=== PATIENT | female | born 1955 | race Caucasian/White ===

== ENCOUNTER → 2016-11-24 | Day surgery (SDC) | payer OTHER ==
[~2016-11-24] VITALS: Ht 152.4 cm; Wt 89.0 kg
[~2016-11-24] MED LIST: ACETAMINOPHEN 325 MG TAB PO PRN; ATROPINE SULFATE 0.1 MG/ML 5ML SYR IV PRN; CALC625T PO; CLTP PO; FENTANYL CITRATE INJ 50 MCG/1 ML 2 ML VIAL ONE; FERR325T5 PO; GINSENG PO; HEPARIN SOD (PORCINE) 1000 UNIT/ML 10 ML VIAL ONE; HYDR12.56 PO; HYDRTAB53 PO; LISI-787 PO; MIDAZOLAM HCL 1 MG/ML 2ML VIAL ONE; MULT-506 PO; NITROGLYCERIN/D5W 100MCG/ML 20ML SYR ONE; NiCARDipine HCL INJ 2.5 MG/ML 10 ML AMP ONE; ONDANSETRON INJ 2 MG/ML 2 ML VIAL IV PRN; PRLSR20 PO; SENNTAB23 PO; SIMV20TA2 PO; SODIUM CHLORIDE 0.9% 1000ML 250 ML IV PRN; TIMO0.5S35 OP; TRAZ1TAB16 PO; ULT/50 PO; VARE1PAK15 PO; [UNRECOGNIZED DRUG - CODE]
[2016-11-24 07:25] VITALS: BP 123/66; PULSE 72; TEMP 36.4; O2SAT 97; Ht 152.4 cm; Wt 89.0 kg
--- NOTE | 2016-11-24 08:08 | Procedure Note ---
Pre-Mod Sedation Assessment General Date of Moderate Sedation: Nov 24, 2016. Vital Signs: Vital Signs Past 12 Hours Date Time Temp Pulse Resp B/P (MAP) Pulse Ox O2 Delivery O2 Flow Rate FiO2 11/24/16 07:25 36.4 72 16 123/66 97 Room Air Review Cardiovascular: regular rate, rhythm, no edema, no gallop Abdomen: normal bowel sounds, non tender, soft Lungs: chest non-tender, lungs clear Pre-Sedation Airway Assessment Oral Cavity: Dentures Short Thick Neck: Yes Hx of Sleep Apnea: No Smoking Status: Current Every Day Smoker Mallampati Classification: Class III ASA Classification: Class III Procedure Planning Contraindications-for Mod Sed: None Yes Notes The planned sedation has been discussed with the patient and consent obtained. I have identified the patient, determined the appropriateness of sedation and have assessed the patient immediately prior to the procedure. All medicine(s) and interventions are by my order.
--- NOTE | 2016-11-24 09:48 | Procedure Note ---
Post-Mod Sedation Assessment General Date of Moderate Sedation Nov 24, 2016. Vital Signs: Vital Signs Past 12 Hours Date Time Temp Pulse Resp B/P (MAP) Pulse Ox O2 Delivery O2 Flow Rate FiO2 11/24/16 09:35 65 16 118/76 (90) 98 Room Air 11/24/16 07:25 36.4 72 16 123/66 97 Room Air Review - Discharge Criteria Vital Signs Stable: Yes Alert/Oriented/Conversant: Yes Returned to Baseline Mental St: Yes Nausea Absent/Minimal: Yes Pain/Discomfort/Absent/Minimal: Yes Normal/Baseline Respirations: Yes Active Bleeding?: No Pt Received D/C Instructions: No Prescriptions Given: None Specific Proced. D/C Criteria Distal Pulses Present (Cardiac: Yes Groin site assessed-Card Cath: Yes Voided Prior To Discharge: Yes Discharged Patients Adult Escort/Transportation: Yes
--- NOTE | 2016-11-24 09:48 | History & Physical Bridge Note ---
H&P Re-Evaluation Bridge Note: I have examined the patient, reviewed the History & Physical and in the interval since the performance of the History & Physical I have noted the following changes of clinical significance: No changes noted
--- NOTE | 2016-11-24 09:53 | Cardiac Catheterization ---
Procedure Note Procedure Date Nov 24, 2016. Pre-Procedure Diagnosis Valvular Disease AUC Score 7 Post-Procedure Diagnosis Normal Coronary Arteries Procedure(s) Performed Coronary Angiography Comprehensive Advisor Dr. Duckworth Dirt Supervisor(s) Yudi AYALA Estimated Blood Loss 5cc Medication(s) Fentanyl, Versed, Lidocaine 1% Summary of Findings Normal coronary arteries. Hemodynamics Rest Ao: 111/68/87 Final Ao: 110/69/86 LV: N/A Recommendations valve replacement Specimens None Radiation Exposure (mGy) 1113 Contrast (mls) 70 Anesthesia Moderate sedation. Sedation LAURIE Serra Procedural Complication(s) None Disposition Song Plugger Holding/Recovery ACC Data Cardiac Status Clinical evaluation leading to the procedure: Severe with progressive THOMAS. CAD Presntation: Stable angina Anginal Classification: CCS III Heart Failure: No Cardiogenic Shock w/in 24Hrs: No Cardiac Arrest w/in 24Hrs: No Imaging studies past 6 months: Yes Stress studies past 6 months: No Coronary Anatomy Dominant: Right Left Main (% Stenosis): Normal LAD (% Stenosis): Normal D1 (% Stenosis): Normal D2 (% Stenosis): Normal Circumflex (% Stenosis): Normal OM1 (% Stenosis): Normal L PL1 (% Stenosis): Normal L PL2 (% Stenosis): Normal RCA (% Stenosis): Normal R PDA (% Stenosis): Normal R PL1 (% Stenosis): Normal AM (% Stenosis): Normal Diagnostic Status: Elective Closure Device Percutaneous Entry Location: Femoral (unable to pass wire via radial access) Closure Device: Mynx Recommendations: valve replacement Intraprocedure Events Significant Dissection: No Perforation: No
--- NOTE | 2016-11-24 09:56 | Discharge Instructions ---
Discharge Instructions Procedure Procedure Date: Nov 24, 2016. Reason for Visit: Aortic Stenosis *Kopinski To Do*. Discharge Discharge Date: Nov 24, 2016. Discharge Diagnosis: status post cornary angiography. Normal coronary arteries. Last Recorded Wt (Kilograms): 89 Anesthesia Post Anesthesia Instructions: If you have had General Anesthesia or IV Sedation: * Do not drive today. * Resume driving when surgeon permits. * Do not make important decisions or sign legal documents today. * Call surgeon for: 1. Temperature elevations greater than 101 degrees F. 2. Uncontrollable pain. 3. Excessive bleeding. 4. Persistent nausea and vomiting. 5. Medication intolerance (nausea, vomiting or rash). * For nausea and vomiting use only clear liquids such as: tea, soda, bouillon until nausea subsides, then gradually increase diet as tolerated. * If you have any concerns or questions, call your surgeon's office. If physician is unavailable and it is an emergency, call 911 or go to the nearest emergency room. Instructions Activity Recommendations: limitations as noted below Return to School/Work: with the following limitations Recommended Home Diet: resume previous diet Allergies: Coded Allergies: Fluoxetine (Verified Allergy, Intermediate, /, 08/07/13) Venlafaxine (Verified Allergy, Intermediate, ?, 08/07/13) Uncoded Allergies: BUSPIRONE (Allergy, Intermediate, ?, 11/18/11) CORTISONE (Allergy, Intermediate, ?, 11/18/11) EYE DROPS (Allergy, Intermediate, ?, 11/18/11) SEAFOOD (Allergy, Intermediate, ?, 11/18/11) SUTURE (Allergy, Unknown, OTHER, 08/07/13) INFECTION Provider Instructions ACTIVITY RECOMMENDATIONS: It is common to feel weak and fatigue for a few days. * Do not drive or operate any motorized equipment for the next three days. * Limit stair usage (2 or 3 trips a day only) for the next three days. * Do not lift anything heavier than 10 pounds for the next three days. * Do not engage in vigorous exercise or any sports for the next five days. * You may shower the day after your procedure, but do not immerse the area for three days. Cleanse the site gently with soap and water. SPECIAL CARE INSTRUCTIONS: * You may replace the pressure dressing or band-aid the morning after the procedure. * After your procedure, it is normal to have a small bruise or small lump at the site. Examine your site daily for any change in the bruise or lump, redness, swelling, drainage or numbness. Notify your doctor if any change. BLEEDING: * If there is a small amount of bleeding at the site, lie down and apply firm pressure with a clean cloth for ten minutes. When the bleeding stops, lie quietly keeping the procedure limb straight for six hours. Notify your doctor as soon as possible. * If the bleeding does not stop after ten minutes or if there is a large amount of bleeding or spurting, call 911 immediately. Continue to lie down and hold firm pressure until help arrives. SKIN IRRITATION: * You may experience some redness and/or swelling in the area where radiation was administered. If any skin irritation occurs, please contact your family physician. FOLLOW UP VISIT: Keep any scheduled doctor appointments. Follow Up Follow-up with: Cardiothoracic surgery as scheduled. Tameka Almonte Recommendations: Call your doctor if: * Temperature above 101 degrees * Pain not relieved by pain medicine ordered * There is increased drainage or redness from any incision * You have any unanswered questions or concerns. Your Doctors Instructions noted above were prepared by provider Chaim Duckworth. Patient Signature Section: Patient Instructions Signature Page Bong Oliveira Patient (or Guardian) Signature/Date: I have read and understand the instructions given to me by my caregivers. Caregiver/RN/Doctor Signature/Date: The above-named patient and/or guardian has received patient instructions on this date. + Original Patient Signature Page (only) stays with chart. Please make copy for patient.
[2016-11-24 13:30] VITALS: BP 120/68; PULSE 74; O2SAT 98
== END | disposition home or self-care (01) ==
LOC: C.CATH 06:39
PROVIDERS: ATTEND Internal Medicine Cardiovascular Disease
DX: I35.0 Nonrheumatic aortic (valve) stenosis (principal); I45.10 Unspecified right bundle-branch block; R06.02 Shortness of breath; N18.3 Chronic kidney disease, stage 3 (moderate); E78.5 Hyperlipidemia, unspecified; I10 Essential (primary) hypertension; Z79.82 Long term (current) use of aspirin; Z82.0 Family history of epilepsy and other diseases of the nervous system; Z82.3 Family history of stroke; Z83.6 Family history of other diseases of the respiratory system; F17.200 Nicotine dependence, unspecified, uncomplicated; G90.521 Complex regional pain syndrome I of right lower limb

== ENCOUNTER 2017-03-26 09:32 | Day surgery (SDC) | payer OTHER ==
[2017-03-17 15:08] VITALS: BMI 36.0
--- NOTE | 2017-03-17 15:43 | PAT Medication Instructions ---
Service Date Mar 17, 2017. Current Home Medication List Aspirin (Aspirin Chewable), 81 MG PO BID Calcium Polycarbophil (Fibercon), Unknown Dose PO BID Ginseng (Siberian Root), 1 CAP PO QAM Hydrocodon/Acetaminophen 7.5MG/300MG (Vicodin Es (7.5MG/300MG)), 1 TAB PO Q6 PRN for Pain Metoprolol Tartrate (Lopressor) (Lopressor), 0.5 TAB PO BID Multiple Minerals W/ Vitamins (Citracal Plus), 1 TAB PO BID Multivitamin (Multivitamin), 1 TAB PO QAM Omeprazole (Prilosec), 40 MG PO QAM Polyethylene Glycol 3350 (Miralax), 17 GM PO QAM Simvastatin (Zocor), 20 MG PO QPM Timolol Maleate (Ophth) (Timoptic), 1 DROPS OP QAM Tramadol Hcl (Ultram), 2 PO TID PRN for Pain Trazodone Hcl (Desyrel), 50 MG PO QHS Varenicline Tartrate (Chantix Starting Month Pa), 1 TAB PO BID [Vitamin C ], 100 MG PO QAM Medication Instructions For Your Scheduled Surgery - Check with surgeon and electro mechanical technician for instructions: Aspirin (Aspirin Chewable), 81 MG PO BID - Hold the following medications starting 03/18/17: Ginseng (Siberian Root), 1 CAP PO QAM - Hold the following medications the morning of surgery: [Vitamin C ], 100 MG PO QAM Varenicline Tartrate (Chantix Starting Month Pa), 1 TAB PO BID Polyethylene Glycol 3350 (Miralax), 17 GM PO QAM Multivitamin (Multivitamin), 1 TAB PO QAM Multiple Minerals W/ Vitamins (Citracal Plus), 1 TAB PO BID Calcium Polycarbophil (Fibercon), Unknown Dose PO BID - Take the following medications the morning of surgery with a sip of water: Tramadol Hcl (Ultram), 2 PO TID PRN for Pain (okay to take up to 4 hours prior to surgery if needed) Hydrocodon/Acetaminophen 7.5MG/300MG (Vicodin Es (7.5MG/300MG)), 1 TAB PO Q6 PRN for Pain(okay to take up to 4 hours prior to surgery if needed) Timolol Maleate (Ophth) (Timoptic), 1 DROPS OP QAM Omeprazole (Prilosec), 40 MG PO QAM Metoprolol Tartrate (Lopressor) (Lopressor), 0.5 TAB PO BID - Take the following medications as scheduled the night before surgery: Varenicline Tartrate (Chantix Starting Month Pa), 1 TAB PO BID Trazodone Hcl (Desyrel), 50 MG PO QHS Tramadol Hcl (Ultram), 2 PO TID PRN for Pain (if needed) Simvastatin (Zocor), 20 MG PO QPM Multiple Minerals W/ Vitamins (Citracal Plus), 1 TAB PO BID Hydrocodon/Acetaminophen 7.5MG/300MG (Vicodin Es (7.5MG/300MG)), 1 TAB PO Q6 PRN for Pain (if needed) Calcium Polycarbophil (Fibercon), Unknown Dose PO BID If you have any questions please call us at [phone] or [phone] or [phone]
[~2017-03-26] VITALS: Ht 152.4 cm; Wt 84.7 kg
[~2017-03-26 09:32] MED LIST changes: -ACETAMINOPHEN 325 MG TAB PO PRN; +ASPCH81X PO; -ATROPINE SULFATE 0.1 MG/ML 5ML SYR IV PRN; -CLTP PO; -FENTANYL CITRATE INJ 50 MCG/1 ML 2 ML VIAL ONE; -FERR325T5 PO; -GINSENG PO; -HEPARIN SOD (PORCINE) 1000 UNIT/ML 10 ML VIAL ONE; +HYDR-3714 PO; -HYDR12.56 PO; -HYDRTAB53 PO; +LACTATED RINGER'S 1000ML 1,000 ML IV SCH; -LISI-787 PO; +METO25TA56 PO; -MIDAZOLAM HCL 1 MG/ML 2ML VIAL ONE; +MULT-663 PO; -NITROGLYCERIN/D5W 100MCG/ML 20ML SYR ONE; -NiCARDipine HCL INJ 2.5 MG/ML 10 ML AMP ONE; -ONDANSETRON INJ 2 MG/ML 2 ML VIAL IV PRN; +POLY335019 PO; -SENNTAB23 PO; -SODIUM CHLORIDE 0.9% 1000ML 250 ML IV PRN; +TRAZ-119 PO; -TRAZ1TAB16 PO; +VITAMIN C PO; -[UNRECOGNIZED DRUG - CODE]; +[UNRECOGNIZED DRUG - CODE] PO
[2017-03-26 10:24] VITALS: BP 159/71; PULSE 67; TEMP 37.1; O2SAT 95; Ht 152.4 cm; Wt 84.7 kg
[2017-03-26] MEDS ORDERED: EpHEDrine SULFATE INJ 50 MG/ML AMP IV PRN (12:00)
[2017-03-26] MEDS ORDERED: MEPERIDINE HCL 25 MG/ML CARP IV PRN (12:00)
[2017-03-26] MEDS ORDERED: FENTANYL CITRATE INJ 50 MCG/1 ML 2 ML VIAL IV PRN (12:00)
[2017-03-26] MEDS ORDERED: ONDANSETRON INJ 2 MG/ML 2 ML VIAL IV PRN ×2 (12:00→15:15)
[2017-03-26] MEDS ORDERED: ATROPINE SULFATE 0.1 MG/ML 5ML SYR IV PRN (12:00)
[2017-03-26] MEDS ORDERED: HYDROmorphone INJ 1 MG/ML SYR IV PRN (12:00)
[2017-03-26] MEDS ORDERED: LABETALOL HCL IV 5 MG/ML 20ML IV PRN (12:00)
[2017-03-26] MEDS ORDERED: MIDAZOLAM HCL 1 MG/ML 2ML VIAL ONE (12:06)
[2017-03-26] MEDS ORDERED: FENTANYL CITRATE INJ 50 MCG/1 ML 2 ML VIAL ONE (12:06)
[2017-03-26] MEDS ORDERED: PROPOFOL IV EMULSION 10 MG/ML 20 ML VIAL IV ONE (14:52)
[2017-03-26] MEDS ORDERED: GLYCOPYRROLATE INJ 0.2 MG/ML VIAL ONE (14:52)
[2017-03-26] MEDS ORDERED: NEOSTIGMINE METHYLSULFATE 5 MG/5 ML SYR ONE (14:52)
[2017-03-26] MEDS ORDERED: ROCURONIUM BROMIDE 10 MG/ML 5 ML VIAL IV ONE (14:52)
[2017-03-26] MEDS ORDERED: LIDOCAINE HCL 2% 2 ML VIAL (20MG/ML) ONE (14:52)
[2017-03-26] MEDS ORDERED: DEXAMETHASONE SOD INJ 4 MG/ML VIAL ONE (14:52)
[2017-03-26] MEDS ORDERED: ONDANSETRON INJ 2 MG/ML 2 ML VIAL ONE (14:52)
[2017-03-26] MEDS ORDERED: SODIUM CHLORIDE 0.9% 1000ML 1,000 ML IV SCH (15:12)
[2017-03-26] MEDS ORDERED: HYDROCODONE/ACETAMOPHEN 5/325MG TAB PO PRN ×2 (15:15)
[2017-03-26] MEDS ORDERED: OXYCODONE/ACETAMINOPHEN 5-325 TAB PO PRN ×2 (15:15)
[2017-03-26] MEDS ORDERED: IBUPROFEN 600 MG TAB PO PRN (15:15)
[2017-03-26] MEDS ORDERED: KETOROLAC TROMETHAMINE 30 MG/ML VIAL IV. PRN (15:15)
[2017-03-26] MEDS ORDERED: MTR600X PO (15:16)
--- NOTE | 2017-03-26 15:17 | Discharge Instructions ---
Discharge Instructions Date of Service Mar 26, 2017. Admission Reason for Admission: Post-Menopausal Bleeding Discharge Discharge Diagnosis / Problem: postop Discharge Goals Goal(s): Routine recovery after surgery Activity Recommendations Activity Limitations: as noted below ACTIVITY RECOMMENDATIONS: * Avoid tampons, douching, hot tubs, pools, and intercourse until bleeding has stopped. * May shower as usual. * No strenuous activity for 24-48 hours. After 24-48 hours, you can do anything you feel like doing (driving and sports are okay). RETURN TO SCHOOL/WORK: * You may return to school or work after 24 hours unless specified by your physician. DIET: * Resume previous diet. MEDICATIONS: Resume previous medications unless instructed otherwise by your surgeon. Ibuprofen 200mg 2-3 tablets every 4-6 hours as needed --OR-- Aleve 2 tablets every 8-12 hours as needed for post-operative discomfort Medications are over the counter. Tylenol may be used if above medications are contraindicated or not preferred. Medication should be taken with food or milk. do not take on an empty stomach. SPECIAL CARE INSTRUCTIONS: * Check temperature twice daily for one week. Report any elevation over 101 degrees. * Call office if you experience increased pelvic pain or discomfort not relieved by pain medicine, if you have foul smelling vaginal discharge, if you have bleeding that is heavier than a normal menstrual flow. If you are changing a maxi pad every 1- 2 hours, this is too heavy. vaginal spotting is normal for 1-2 weeks. FOLLOW UP VISIT: Call your doctor's office for a post-operative visit. . Current Hospital Diet Patient's current hospital diet: Discharge Diet Recommended Diet: Regular Diet Procedures Procedures Performed: Exam Under Anesthesia, Dilation and Currettage, Hysteroscopy, Endometrial Polyp Resection Pending Studies Studies pending at discharge: no Medical Emergencies . Who to Call and When: Medical Emergencies: If at any time you feel your situation is an emergency, please call 911 immediately. . Non-Emergent Contact Non-Emergency issues call your: Specialist . . "Provider Documentation" section prepared by Renzo Martinez. . VTE Core Measure Inpt VTE Proph given/why not?: Treatment not indicated
--- NOTE | 2017-03-26 15:53 | Anesthesiology Progress Note ---
Anesthesia Post Op Note Date & Time Mar 26, 2017 at 15:53 Vital Signs Pain Intensity: 0 Vital Signs Past 12 Hours Date Time Temp Pulse Resp B/P (MAP) Pulse Ox O2 Delivery O2 Flow Rate FiO2 03/26/17 15:15 36.4 84 16 127/69 96 Oxymask 7 03/26/17 10:24 37.1 67 18 159/71 (100) 95 Room Air Notes Mental Status: alert / awake / arousable, participated in evaluation Pt Amnestic to Procedure: Yes Nausea / Vomiting: adequately controlled Pain: adequately controlled Airway Patency, RR, SpO2: stable & adequate BP & HR: stable & adequate Hydration State: stable & adequate Anesthetic Complications: no major complications apparent
[2017-03-26 16:00] VITALS: BP 113/64; PULSE 75; TEMP 36.8; O2SAT 94
[2017-03-26 16:30] VITALS: BP 122/80; PULSE 84; O2SAT 94
[2017-03-26 17:00] VITALS: BP 131/95; PULSE 82; TEMP 37; O2SAT 95
--- NOTE | 2017-03-26 20:09 | OPERATIVE REPORT ---
DATE OF OPERATION: 03/26/2017 INDICATION FOR PROCEDURE: This is a 61-year-old with postmenopausal bleeding and abnormal findings on pelvic ultrasound. PREOPERATIVE DIAGNOSES: 1. Postmenopausal bleeding. 2. Abnormal findings on pelvic ultrasound. POSTOPERATIVE DIAGNOSES: Same. PROCEDURES: 1. Examination under anesthesia. 2. Dilation and curettage. 3. Hysteroscopy. 4. Endometrial polyp resection via MyoSure. ANESTHESIA: General. SURGEON: Renzo Martinez MD. NATURAL SCIENCE CURATOR: None. ESTIMATED BLOOD LOSS: 20 mL. IV FLUIDS: 500 mL. URINE OUTPUT: 150 mL. FINDINGS: Normal female escutcheon. Cervix appeared grossly normal. Endometrium had 2 polyps with base at the fundus. Both ostia were identified. No other gross lesions seen in the uterine cavity. PATHOLOGY: 1. Polyp resection via MyoSure. 2. Endometrial curettings. COMPLICATIONS: None. DRAINS: None. DISPOSITION: Stable to recovery room. DESCRIPTION OF PROCEDURE: The patient was taken to the operating room where she was prepped and draped in normal sterile fashion in dorsal lithotomy position. Bladder was catheterized and 150 mL of clear urine was obtained. The patient was examined and the uterus was found to be 6-8 weeks' size with no masses palpated in the adnexa. A weighted speculum was placed in the vagina. Nye retractor used to retract the anterior part of the vagina. Single tooth tenaculum was used to grab the cervix. Cervix was dilated to a size 24. A MyoSure hysteroscope was placed into the uterine cavity. Findings of the uterine cavity as dictated above. The MyoSure device was passed through the outflow track of the hysteroscope and the MyoSure was used to remove the polyps as well as to scrap some of the endometrial lining. The MyoSure and scope was removed. The cervix was further dilated to a size 28 and a sharp curette introduced into the uterine cavity and curettage performed in all 4 quadrants until a gritty, texture was obtained. That specimen was sent separately from the specimen obtained from the MyoSure polyp resection. Both specimens were sent to pathology for pathological analysis. All instruments were removed from the uterus including the scope, the MyoSure, the curette, sponges and accounted for x2. There is good hemostasis. The patient is sent to recovery in stable condition. I attest to the content of the Intraoperative Record and any orders documented therein. Any exception s are noted below.
== END 2017-03-26 17:05 | disposition home or self-care (01) ==
LOC: C.ACU 09:32
PROVIDERS: ATTEND Obstetrics & Gynecology
DX: N84.0 Polyp of corpus uteri (principal); N85.8 Other specified noninflammatory disorders of uterus; E61.1 Iron deficiency; F17.200 Nicotine dependence, unspecified, uncomplicated; Z79.82 Long term (current) use of aspirin; Z79.899 Other long term (current) drug therapy